=== PATIENT | female | born 1960 | race Caucasian/White ===

== ENCOUNTER 2021-07-20 08:40 | Inpatient (IN) ==
[2021-07-20] MEDS ORDERED: Acetaminophen 325 MG TABLET PO PRN (11:58)
[2021-07-20] MEDS ORDERED: Perflutren Lipid Microsphere 1.3 ML in 0.9 % Sodium Chloride 8.7 ML IVP PRN (11:58)
[2021-07-20] MEDS ORDERED: Isovue-370 500 ML BOTTLE IVP ONE (11:58)
[2021-07-20] MEDS ORDERED: Naloxone 0.4 MG/ML INJ IVP PRN (11:58)
[2021-07-20] MEDS ORDERED: Ondansetron 4 MG/2 ML VIAL IVP PRN (12:05)
[2021-07-20] MEDS ORDERED: Albuterol 2.5 MG/3 ML NEBULIZER IH PRN (12:06)
[2021-07-20] MEDS: Albumin Human 5% 12.5 GM/250 ML IV.SOLN IVC SCH ×2 (13:01→13:28)
[2021-07-20] MEDS: Vancomycin Oral Soln 125 MG/2.5 ML UDC PO SCH ×3 (13:03→20:20)
[2021-07-20 13:05] LABS: Hemoglobin 13.5 g/dL (11.5-15.4); Mean Corpuscular HGB Conc 36.5 g/dL (31.6-35.5); Mean Corpuscular Hemoglobin 35.3 pg (28.0-33.3); Mean Corpuscular Volume 96.9 fL (83.0-100.0); Mean Platelet Volume 9.2 fL (9.4-12.4); Monocytes # 0.5 K/mcL (0.0-1.3); Platelet Count 247 K/mcL (140-400); Red Blood Count 3.82 M/mcL (3.82-4.97); Red Cell Distribution Width 12.8 % (11.5-14.5); White Blood Count 11.4 K/mcL (4.3-11.1)
[2021-07-20] MEDS: Cefepime HCl 2,000 MG in 0.9 % Sodium Chloride 10 ML IVP SCH ×2 (13:09→23:20)
[2021-07-20 13:12] LABS: INR 1.2
[2021-07-20 13:17] LABS: VBG HCO3 14 mEq/L (21-27); VBG PCO2 32 mmHg (41-51); VBG PH 7.26 pH Units (7.32-7.42); VBG PO2 28 mmHg (25-50)
[2021-07-20 13:24] LABS: Alanine Aminotransferase 18 Units/L (7-52); Albumin 3.2 g/dL (3.5-5.7); Albumin/Globulin Ratio 1.7 (1.1-2.2); Alkaline Phosphatase 44 Units/L (34-104); Aspartate Amino Transferase 56 Units/L (13-39); BUN/Creatinine Ratio 15 (6-26); Bilirubin,Direct 0.1 mg/dL (0.0-0.2); Bilirubin,Indirect 0.3 mg/dL (0.0-1.0); Bilirubin,Total 0.4 mg/dL (0.3-1.0); Blood Urea Nitrogen 11 mg/dL (8-23); Calcium 7.8 mg/dL (8.6-10.3); Carbon Dioxide 15 mEq/L (23-29); Chloride 114 mEq/L (98-107); Globulin 1.9 g/dL (2.4-3.5); Glucose 191 mg/dL (70-105); Magnesium 1.8 mg/dL (1.6-2.6); Osmolality,Calculated 287 (280-300); Phosphorous 2.5 mg/dL (2.7-4.5); Potassium 2.9 mEq/L (3.5-5.1); Sodium 136 mEq/L (136-145); Total Protein 5.1 g/dL (6.4-8.9); eGFR For African Americans > 60 (> 60); eGFR For Non-African Americans > 60 (> 60)
[2021-07-20 13:38] LABS: Lymphocytes # 0.5 K/mcL (0.6-4.6); Neutrophils # 10.5 K/mcL (1.6-8.9); Platelet Estimate Normal (Normal)
[2021-07-20] MEDS ORDERED: *HR* LORazepam 2 MG/ML VIAL IVP PRN ×2 (14:54)
[2021-07-20 15:02] LABS: Bilirubin,Urine Negative (Negative); Blood,Urine Small (Negative); Clarity,Urine Clear (Clear); Color,Urine Yellow (Yellow); Glucose,Urine (UA) Normal (Normal); Hyaline Casts,Urine Few per lpf (None Seen); Ketones,Urine Negative (Negative); Leukocyte Esterase,Urine Negative (Negative); Mucus,Urine Few per lpf (None-Few); Nitrite,Urine Negative (Negative); Protein,Urine 50 mg/dL (Neg-Trace); Specific Gravity,Urine 1.017 (1.010-1.025); Squamous Epithelial Cell,Urine Few per hpf (None-Few); Urobilinogen,Urine Normal (Normal); WBC,Urine 0-3 per hpf (0-3)
[2021-07-20] MEDS: MetroNIDAZOLE 500 MG/100 ML 500 MG/100 ML BAG IVPB SCH ×2 (15:11→23:19)
[2021-07-20] MEDS: Ipratropium/Albuterol Neb 3 ML IH SCH ×3 (15:46→23:05)
[2021-07-20] MEDS: Calcium Gluconate 1gm/50mL 1 GM/50 ML BAG IVPB SCH ×2 (15:58→16:13)
[2021-07-20] MEDS: Norepinephrine 4 MG/254 ML IV.SOLN IVC SCH (16:27)
[2021-07-20] MEDS: Thiamine (B-1) 100 MG, Folic Acid 1 MG, MVI, adult with vitamin K 10 ML in 0.9 % Sodi... IVPB SCH (17:06)
[2021-07-20] MEDS: Pantoprazole 40 MG VIAL IVP SCH (17:17)
[2021-07-20] MEDS: *HR* Heparin 5,000 UNIT/ML VIAL SQ SCH (17:17)
[2021-07-20 18:06] LABS: Adenovirus F 40/41 PCR Not detected (Not detect); Astrovirus PCR Not detected (Not detect); C.difficile Toxin A/B Gene PCR Not detected (Not detect); Campylobacter by PCR Not detected (Not detect); Cryptosporidium by PCR Not detected (Not detect); Cyclospora cayetanensis PCR Not detected (Not detect); Entamoeba histolytica PCR Not detected (Not detect); Enteroaggregative E.coli(EAEC) Not detected (Not detect); Enteropathogenic E.coli(EPEC) Not detected (Not detect); Enterotoxigenic E.coli (ETEC) Not detected (Not detect); Giardia lamblia PCR Not detected (Not detect); Norovirus GI/GII PCR Not detected (Not detect); Plesiomonas shigelloides PCR Not detected (Not detect); Rotavirus A PCR Not detected (Not detect); Salmonella PCR Not detected (Not detect); Sapovirus PCR Not detected (Not detect); Shig/EnteroinvasiveE coli EIEC Not detected (Not detect); Shigalike tox-prod E coli STEC Not detected (Not detect); Vibrio PCR Not detected (Not detect); Vibrio cholerae PCR Not detected (Not detect); Yersinia enterocolitica PCR Not detected (Not detect)
[2021-07-20] MEDS: Nicotine 21 MG PATCH.TD24 TD SCH (18:14)
[2021-07-20] MEDS: Potassium Chloride 20 MEQ in Ringers Solution, Lactated 1,000 ML IVC SCH (18:21)
[2021-07-20] MEDS: *HR* LORazepam 2 MG/ML VIAL IVP PRN (19:24)
[2021-07-20] MEDS: Loratadine 10 MG TABLET PO SCH (19:24)
[2021-07-20 20:38] LABS: BUN/Creatinine Ratio 14 (6-26); Blood Urea Nitrogen 8 mg/dL (8-23); Calcium 7.9 mg/dL (8.6-10.3); Carbon Dioxide 14 mEq/L (23-29); Chloride 114 mEq/L (98-107); Glucose 133 mg/dL (70-105); Osmolality,Calculated 284 (280-300); Potassium 3.2 mEq/L (3.5-5.1); Sodium 137 mEq/L (136-145); eGFR For African Americans > 60 (> 60); eGFR For Non-African Americans > 60 (> 60)
[2021-07-20 20:39] LABS: Phosphorous 3.9 mg/dL (2.7-4.5)
[2021-07-20] MEDS: Doxycycline 100 MG in 0.9 % Sodium Chloride Mini Bag 100 ML IVPB SCH (20:55)
[2021-07-20] MEDS: *HR* Labetalol 20 MG/4 ML SYRINGE IVP PRN (23:42)
[2021-07-21 03:32] LABS: Hematocrit 32.3 % (35.3-44.9); Mean Corpuscular HGB Conc 35.6 g/dL (31.6-35.5); Mean Corpuscular Hemoglobin 33.8 pg (28.0-33.3); Mean Platelet Volume 9.4 fL (9.4-12.4); Platelet Count 246 K/mcL (140-400); Red Cell Distribution Width 12.6 % (11.5-14.5); White Blood Count 14.1 K/mcL (4.3-11.1)
[2021-07-21 03:38] LABS: Hemoglobin 11.5 g/dL (11.5-15.4)
[2021-07-21] MEDS: Ipratropium/Albuterol Neb 3 ML IH SCH ×5 (03:43→20:44)
[2021-07-21 03:54] LABS: Alanine Aminotransferase 18 Units/L (7-52); Albumin 3.3 g/dL (3.5-5.7); Albumin/Globulin Ratio 1.7 (1.1-2.2); Alkaline Phosphatase 39 Units/L (34-104); Aspartate Amino Transferase 65 Units/L (13-39); BUN/Creatinine Ratio 17 (6-26); Bilirubin,Direct 0.1 mg/dL (0.0-0.2); Bilirubin,Indirect 0.3 mg/dL (0.0-1.0); Bilirubin,Total 0.4 mg/dL (0.3-1.0); Blood Urea Nitrogen 9 mg/dL (8-23); Calcium 7.7 mg/dL (8.6-10.3); Carbon Dioxide 14 mEq/L (23-29); Chloride 116 mEq/L (98-107); Glucose 129 mg/dL (70-105); Magnesium 1.9 mg/dL (1.6-2.6); Osmolality,Calculated 288 (280-300); Potassium 3.3 mEq/L (3.5-5.1); Sodium 139 mEq/L (136-145); Total Protein 5.3 g/dL (6.4-8.9); eGFR For African Americans > 60 (> 60); eGFR For Non-African Americans > 60 (> 60)
[2021-07-21 04:05] LABS: Lymphocytes # 0.9 K/mcL (0.6-4.6); Monocytes # 0.6 K/mcL (0.0-1.3); Neutrophils # 12.7 K/mcL (1.6-8.9); Platelet Estimate Normal (Normal)
[2021-07-21] MEDS: *HR* LORazepam 2 MG/ML VIAL IVP PRN ×2 (04:20→20:22)
[2021-07-21] MEDS: *HR* Heparin 5,000 UNIT/ML VIAL SQ SCH ×2 (05:12→17:32)
[2021-07-21] MEDS: Doxycycline 100 MG in 0.9 % Sodium Chloride Mini Bag 100 ML IVPB SCH ×2 (05:13→17:30)
[2021-07-21] MEDS: Pantoprazole 40 MG VIAL IVP SCH ×2 (05:13→17:32)
[2021-07-21] MEDS: Potassium Chloride 20 MEQ in Ringers Solution, Lactated 1,000 ML IVC SCH (05:20)
[2021-07-21] MEDS: *HR* Labetalol 20 MG/4 ML SYRINGE IVP PRN ×2 (05:45→18:09)
[2021-07-21] MEDS: Vancomycin Oral Soln 125 MG/2.5 ML UDC PO SCH (08:25)
[2021-07-21] MEDS: Cefepime HCl 2,000 MG in 0.9 % Sodium Chloride 10 ML IVP SCH ×3 (08:25→23:20)
[2021-07-21] MEDS: MetroNIDAZOLE 500 MG/100 ML 500 MG/100 ML BAG IVPB SCH ×3 (08:26→23:20)
[2021-07-21] MEDS: Loratadine 10 MG TABLET PO SCH (08:26)
[2021-07-21] MEDS: Calcium Gluconate 1gm/50mL 1 GM/50 ML BAG IVPB PRN ×2 (08:26→17:31)
[2021-07-21] MEDS: Nicotine 21 MG PATCH.TD24 TD SCH (08:27)
[2021-07-21] MEDS: Potassium Chloride 40 MEQ/200 ML BAG IVPB PRN ×2 (08:27→17:31)
[2021-07-21] MEDS: Norepinephrine 4 MG/254 ML IV.SOLN IVC SCH (08:28)
[2021-07-21] MEDS: WATER IVC SCH ×2 (10:46→19:50)
[2021-07-21] MEDS: POTASSIUM CHLORIDE IVC SCH ×2 (10:46→19:50)
[2021-07-21] MEDS: SODIUM BICARBONATE IVC SCH ×2 (10:46→19:50)
[2021-07-21] MEDS: D5 IVC SCH ×2 (10:46→19:50)
[2021-07-21 11:26] LABS: VBG HCO3 16 mEq/L (21-27); VBG PCO2 32 mmHg (41-51); VBG PO2 126 mmHg (25-50)
[2021-07-21 16:08] LABS: Magnesium 2.2 mg/dL (1.6-2.6); Phosphorous 2.4 mg/dL (2.7-4.5)
[2021-07-21 16:24] LABS: BUN/Creatinine Ratio 20 (6-26); Blood Urea Nitrogen 9 mg/dL (8-23); Calcium 7.8 mg/dL (8.6-10.3); Carbon Dioxide 19 mEq/L (23-29); Chloride 118 mEq/L (98-107); Glucose 130 mg/dL (70-105); Osmolality,Calculated 296 (280-300); Potassium 3.7 mEq/L (3.5-5.1); Sodium 143 mEq/L (136-145); eGFR For African Americans > 60 (> 60); eGFR For Non-African Americans > 60 (> 60)
[2021-07-21 18:00] LABS: VBG HCO3 20 mEq/L (21-27); VBG Ionized Calcium 1.12 mmol/L (1.15-1.35); VBG PCO2 33 mmHg (41-51); VBG PH 7.37 pH Units (7.32-7.42); VBG PO2 112 mmHg (25-50)
[2021-07-21] MEDS: Thiamine (B-1) 100 MG, Folic Acid 1 MG, MVI, adult with vitamin K 10 ML in 0.9 % Sodi... IVPB SCH (19:18)
[2021-07-22] MEDS: Ipratropium/Albuterol Neb 3 ML IH SCH ×7 (00:37→23:26)
[2021-07-22] MEDS: Dexmedetomidine HCl 400 MCG/100 ML MLS IVC SCH ×3 (01:12→16:15)
[2021-07-22 03:51] LABS: Basophils % 0.1 %; Eosinophils # 0.1 K/mcL (0.0-0.6); Eosinophils % 0.5 %; Hematocrit 28.6 % (35.3-44.9); Hemoglobin 10.2 g/dL (11.5-15.4); Immature Granulocytes % 0.4 % (0-4); Lymphocytes # 0.6 K/mcL (0.6-4.6); Lymphocytes % 5.7 %; Mean Corpuscular HGB Conc 35.7 g/dL (31.6-35.5); Mean Corpuscular Volume 95.3 fL (83.0-100.0); Mean Platelet Volume 9.4 fL (9.4-12.4); Monocytes # 0.7 K/mcL (0.0-1.3); Monocytes % 6.4 %; Neutrophils # 9.7 K/mcL (1.6-8.9); Platelet Count 218 K/mcL (140-400); Red Cell Distribution Width 13.2 % (11.5-14.5); Segmented Neutrophils % 86.9 %; White Blood Count 11.2 K/mcL (4.3-11.1)
[2021-07-22 04:06] LABS: VBG Ionized Calcium 1.01 mmol/L (1.15-1.35)
[2021-07-22 04:07] LABS: BUN/Creatinine Ratio 24 (6-26); Blood Urea Nitrogen 8 mg/dL (8-23); Calcium 7.5 mg/dL (8.6-10.3); Carbon Dioxide 24 mEq/L (23-29); Chloride 115 mEq/L (98-107); Glucose 144 mg/dL (70-105); Magnesium 1.8 mg/dL (1.6-2.6); Osmolality,Calculated 297 (280-300); Phosphorous 1.6 mg/dL (2.7-4.5); Potassium 3.8 mEq/L (3.5-5.1); Sodium 143 mEq/L (136-145); eGFR For African Americans > 60 (> 60); eGFR For Non-African Americans > 60 (> 60)
[2021-07-22] MEDS: Calcium Gluconate 1gm/50mL 1 GM/50 ML BAG IVPB PRN ×2 (04:43→18:43)
[2021-07-22] MEDS: POTASSIUM CHLORIDE IVC SCH ×2 (04:44→14:43)
[2021-07-22] MEDS: WATER IVC SCH ×2 (04:44→14:43)
[2021-07-22] MEDS: SODIUM BICARBONATE IVC SCH ×2 (04:44→14:43)
[2021-07-22] MEDS: D5 IVC SCH ×2 (04:44→14:43)
[2021-07-22] MEDS: Norepinephrine 4 MG/254 ML IV.SOLN IVC SCH (04:45)
[2021-07-22] MEDS: Doxycycline 100 MG in 0.9 % Sodium Chloride Mini Bag 100 ML IVPB SCH ×2 (04:45→17:03)
[2021-07-22] MEDS: *HR* Heparin 5,000 UNIT/ML VIAL SQ SCH ×2 (04:45→17:04)
[2021-07-22] MEDS: Pantoprazole 40 MG VIAL IVP SCH ×2 (04:45→17:29)
[2021-07-22] MEDS: *HR* Labetalol 20 MG/4 ML SYRINGE IVP PRN ×2 (05:07→08:07)
[2021-07-22 07:46] LABS: ABG Base Excess -1 mEq/L (-2 to 3); ABG HCO3 24 mEq/L (21-27); ABG Oxygen Saturation 93 % (95-98); ABG PCO2 38 mmHg (35-45); ABG PO2 67 mmHg (85-104); ABG TCO2 25 mEq/L (20-26)
[2021-07-22] MEDS: Nicotine 21 MG PATCH.TD24 TD SCH (07:47)
[2021-07-22] MEDS: Cefepime HCl 2,000 MG in 0.9 % Sodium Chloride 10 ML IVP SCH ×3 (07:47→23:39)
[2021-07-22] MEDS: MetroNIDAZOLE 500 MG/100 ML 500 MG/100 ML BAG IVPB SCH ×3 (07:48→23:39)
[2021-07-22] MEDS ORDERED: Furosemide 40 MG/4 ML VIAL IVP ONE (08:03)
[2021-07-22] MEDS ORDERED: Furosemide 40 MG/4 ML VIAL ONE (08:06)
[2021-07-22] MEDS: Loratadine 10 MG TABLET PO SCH (08:59)
[2021-07-22] MEDS: Midazolam HCl 50 MG/50 ML IV.SOLN IVC SCH ×3 (14:34→23:39)
[2021-07-22] MEDS ORDERED: *HR* Midazolam HCl 5 MG/5 ML VIAL IVP ONE (16:14)
[2021-07-22] MEDS ORDERED: *HR* Propofol 200 MG/20 ML VIAL IVP ONE (16:14)
[2021-07-22 16:16] LABS: ABG Base Excess 3 mEq/L (-2 to 3); ABG HCO3 29 mEq/L (21-27); ABG Oxygen Saturation 100 % (95-98); ABG PCO2 52 mmHg (35-45); ABG PH 7.35 pH Units (7.32-7.45); ABG PO2 262 mmHg (85-104); ABG TCO2 31 mEq/L (20-26); Blood Gas VT 400 cc
[2021-07-22] MEDS: Thiamine (B-1) 100 MG, Folic Acid 1 MG, MVI, adult with vitamin K 10 ML in 0.9 % Sodi... IVPB SCH (17:03)
[2021-07-22 17:49] LABS: VBG Ionized Calcium 1.06 mmol/L (1.15-1.35)
[2021-07-22 17:51] LABS: Source of Body Fluid RLL BAL
[2021-07-22 18:05] LABS: BUN/Creatinine Ratio 22 (6-26); Blood Urea Nitrogen 7 mg/dL (8-23); Calcium 7.4 mg/dL (8.6-10.3); Carbon Dioxide 29 mEq/L (23-29); Chloride 110 mEq/L (98-107); Glucose 123 mg/dL (70-105); Magnesium 1.8 mg/dL (1.6-2.6); Osmolality,Calculated 295 (280-300); Phosphorous 3.1 mg/dL (2.7-4.5); Potassium 3.6 mEq/L (3.5-5.1); Sodium 143 mEq/L (136-145); eGFR For African Americans > 60 (> 60); eGFR For Non-African Americans > 60 (> 60)
[2021-07-22] MEDS: Potassium Chloride Elixir 20 MEQ/15 ML UDC GTUBE PRN (18:50)
[2021-07-22 20:50] LABS: Appearance of Body Fluid Cloudy (Clear); Volume of Body Fluid 20 mL
[2021-07-23 02:00] LABS: Hematocrit 29.8 % (35.3-44.9); Hemoglobin 10.5 g/dL (11.5-15.4)
[2021-07-23 02:03] LABS: VBG Ionized Calcium 1.09 mmol/L (1.15-1.35)
[2021-07-23 02:21] LABS: Phosphorous 2.3 mg/dL (2.7-4.5)
[2021-07-23] MEDS: Calcium Gluconate 1gm/50mL 1 GM/50 ML BAG IVPB PRN ×2 (02:24→13:00)
[2021-07-23] MEDS: Ipratropium/Albuterol Neb 3 ML IH SCH ×6 (04:06→23:09)
[2021-07-23 04:19] LABS: ABG Base Excess 1 mEq/L (-2 to 3); ABG HCO3 27 mEq/L (21-27); ABG Oxygen Saturation 99 % (95-98); ABG PCO2 46 mmHg (35-45); ABG PH 7.37 pH Units (7.32-7.45); ABG PO2 125 mmHg (85-104); ABG TCO2 28 mEq/L (20-26); Blood Gas VT 400 cc
[2021-07-23 04:27] LABS: BUN/Creatinine Ratio 22 (6-26); Blood Urea Nitrogen 7 mg/dL (8-23); Calcium 7.5 mg/dL (8.6-10.3); Carbon Dioxide 26 mEq/L (23-29); Chloride 114 mEq/L (98-107); Glucose 87 mg/dL (70-105); Osmolality,Calculated 299 (280-300); Potassium 3.9 mEq/L (3.5-5.1); Sodium 146 mEq/L (136-145); eGFR For African Americans > 60 (> 60); eGFR For Non-African Americans > 60 (> 60)
[2021-07-23] MEDS: *HR* Heparin 5,000 UNIT/ML VIAL SQ SCH ×2 (04:58→17:39)
[2021-07-23] MEDS: Pantoprazole 40 MG VIAL IVP SCH (04:58)
[2021-07-23] MEDS: Doxycycline 100 MG in 0.9 % Sodium Chloride Mini Bag 100 ML IVPB SCH ×2 (04:58→17:28)
[2021-07-23] MEDS: Calcium Gluconate 1gm/50mL 1 GM/50 ML BAG IVPB SCH ×2 (06:23→06:34)
[2021-07-23] MEDS: Norepinephrine 4 MG/254 ML IV.SOLN IVC SCH ×2 (07:51→23:11)
[2021-07-23] MEDS: Nicotine 21 MG PATCH.TD24 TD SCH (07:52)
[2021-07-23] MEDS: MetroNIDAZOLE 500 MG/100 ML 500 MG/100 ML BAG IVPB SCH ×3 (08:18→23:11)
[2021-07-23] MEDS: Cefepime HCl 2,000 MG in 0.9 % Sodium Chloride 10 ML IVP SCH ×3 (08:22→23:11)
[2021-07-23] MEDS: Loratadine 10 MG TABLET PO SCH (08:29)
[2021-07-23] MEDS ORDERED: Artificial Tears SOLN 15 ML BOTTLE BOTH EYES PRN (10:17)
[2021-07-23] MEDS: Midazolam HCl 50 MG/50 ML IV.SOLN IVC SCH ×2 (11:32→19:52)
[2021-07-23] MEDS: Artificial Tears SOLN 15 ML BOTTLE BOTH EYES SCH ×4 (11:35→23:10)
[2021-07-23 12:44] LABS: VBG Ionized Calcium 1.09 mmol/L (1.15-1.35)
[2021-07-23 13:01] LABS: BUN/Creatinine Ratio 21 (6-26); Blood Urea Nitrogen 6 mg/dL (8-23); Calcium 7.8 mg/dL (8.6-10.3); Carbon Dioxide 26 mEq/L (23-29); Chloride 114 mEq/L (98-107); Glucose 82 mg/dL (70-105); Osmolality,Calculated 299 (280-300); Potassium 3.6 mEq/L (3.5-5.1); Sodium 146 mEq/L (136-145); eGFR For African Americans > 60 (> 60); eGFR For Non-African Americans > 60 (> 60)
[2021-07-23] MEDS: Potassium Chloride Elixir 20 MEQ/15 ML UDC GTUBE PRN (16:03)
[2021-07-23] MEDS: Chlorhexidine Rinse 15 ML MOUTHWASH MM SCH (20:20)
[2021-07-24] MEDS: Midazolam HCl 50 MG/50 ML IV.SOLN IVC SCH (02:11)
[2021-07-24] MEDS: Artificial Tears SOLN 15 ML BOTTLE BOTH EYES SCH ×6 (03:07→23:17)
[2021-07-24] MEDS: Ipratropium/Albuterol Neb 3 ML IH SCH ×6 (03:33→23:29)
[2021-07-24 03:56] LABS: VBG Ionized Calcium 1.06 mmol/L (1.15-1.35)
[2021-07-24 04:06] LABS: ABG Base Excess -2 mEq/L (-2 to 3); ABG HCO3 24 mEq/L (21-27); ABG Oxygen Saturation 85 % (95-98); ABG PCO2 43 mmHg (35-45); ABG PH 7.36 pH Units (7.32-7.45); ABG PO2 52 mmHg (85-104); ABG TCO2 25 mEq/L (20-26); Blood Gas Modality ASSIST CONTROL; Blood Gas VT 400 cc
[2021-07-24 04:26] LABS: BUN/Creatinine Ratio 23 (6-26); Blood Urea Nitrogen 7 mg/dL (8-23); Calcium 7.6 mg/dL (8.6-10.3); Carbon Dioxide 23 mEq/L (23-29); Chloride 117 mEq/L (98-107); Glucose 111 mg/dL (70-105); Osmolality,Calculated 299 (280-300); Phosphorous 2.9 mg/dL (2.7-4.5); Potassium 3.9 mEq/L (3.5-5.1); Sodium 145 mEq/L (136-145); eGFR For African Americans > 60 (> 60); eGFR For Non-African Americans > 60 (> 60)
[2021-07-24] MEDS: *HR* Heparin 5,000 UNIT/ML VIAL SQ SCH ×2 (05:19→17:19)
[2021-07-24] MEDS: Doxycycline 100 MG in 0.9 % Sodium Chloride Mini Bag 100 ML IVPB SCH ×2 (05:19→17:19)
[2021-07-24] MEDS: Calcium Gluconate 1gm/50mL 1 GM/50 ML BAG IVPB PRN (05:20)
[2021-07-24] MEDS: Dexmedetomidine HCl 400 MCG/100 ML MLS IVC SCH ×3 (05:22→23:26)
[2021-07-24 06:56] LABS: Basophils % 0.2 %; Eosinophils # 0.5 K/mcL (0.0-0.6); Eosinophils % 2.8 %; Hematocrit 29.5 % (35.3-44.9); Hemoglobin 10.1 g/dL (11.5-15.4); Immature Granulocytes % 1.1 % (0-4); Lymphocytes # 0.9 K/mcL (0.6-4.6); Mean Corpuscular HGB Conc 34.2 g/dL (31.6-35.5); Mean Corpuscular Hemoglobin 34.2 pg (28.0-33.3); Mean Platelet Volume 10.1 fL (9.4-12.4); Platelet Count 235 K/mcL (140-400); Red Blood Count 2.95 M/mcL (3.82-4.97); Red Cell Distribution Width 14.3 % (11.5-14.5); Segmented Neutrophils % 82.9 %
[2021-07-24 07:30] LABS: Monocytes # 1.4 K/mcL (0.0-1.3); Neutrophils # 14.9 K/mcL (1.6-8.9)
[2021-07-24] MEDS: Nicotine 21 MG PATCH.TD24 TD SCH (07:52)
[2021-07-24] MEDS: MetroNIDAZOLE 500 MG/100 ML 500 MG/100 ML BAG IVPB SCH ×3 (08:00→23:17)
[2021-07-24] MEDS: Cefepime HCl 2,000 MG in 0.9 % Sodium Chloride 10 ML IVP SCH ×3 (08:05→23:18)
[2021-07-24] MEDS: Loratadine 10 MG TABLET PO SCH (08:16)
[2021-07-24] MEDS: Chlorhexidine Rinse 15 ML MOUTHWASH MM SCH ×2 (08:16→20:47)
[2021-07-24] MEDS: Potassium Chloride Elixir 20 MEQ/15 ML UDC GTUBE PRN (08:56)
[2021-07-24] MEDS: Pantoprazole 40 MG VIAL IVP SCH (08:57)
[2021-07-24] MEDS ORDERED: Furosemide 40 MG/4 ML VIAL IVP ONE (12:41)
[2021-07-24] MEDS ORDERED: 0.9 % Sodium Chloride 500 ML ONE (17:03)
[2021-07-24] MEDS: Norepinephrine 4 MG/254 ML IV.SOLN IVC SCH (21:29)
[2021-07-25] MEDS: Artificial Tears SOLN 15 ML BOTTLE BOTH EYES SCH ×6 (03:05→22:20)
[2021-07-25] MEDS: Ipratropium/Albuterol Neb 3 ML IH SCH ×6 (03:29→23:35)
[2021-07-25 04:22] LABS: ABG Base Excess 1 mEq/L (-2 to 3); ABG HCO3 27 mEq/L (21-27); ABG Oxygen Saturation 96 % (95-98); ABG PCO2 46 mmHg (35-45); ABG PH 7.38 pH Units (7.32-7.45); ABG PO2 88 mmHg (85-104); ABG TCO2 28 mEq/L (20-26); Blood Gas VT 400 cc
[2021-07-25 04:25] LABS: VBG Ionized Calcium 1.05 mmol/L (1.15-1.35)
[2021-07-25 04:44] LABS: BUN/Creatinine Ratio 26 (6-26); Blood Urea Nitrogen 7 mg/dL (8-23); Carbon Dioxide 25 mEq/L (23-29); Chloride 115 mEq/L (98-107); Glucose 126 mg/dL (70-105); Magnesium 1.8 mg/dL (1.6-2.6); Osmolality,Calculated 300 (280-300); Phosphorous 2.4 mg/dL (2.7-4.5); Sodium 145 mEq/L (136-145); eGFR For African Americans > 60 (> 60); eGFR For Non-African Americans > 60 (> 60)
[2021-07-25] MEDS: Calcium Gluconate 1gm/50mL 1 GM/50 ML BAG IVPB PRN (04:55)
[2021-07-25] MEDS: *HR* Heparin 5,000 UNIT/ML VIAL SQ SCH ×2 (05:02→17:52)
[2021-07-25] MEDS: Doxycycline 100 MG in 0.9 % Sodium Chloride Mini Bag 100 ML IVPB SCH ×2 (05:02→17:52)
[2021-07-25 05:45] LABS: Basophils % 0.4 %; Eosinophils # 0.7 K/mcL (0.0-0.6); Eosinophils % 7.2 %; Hemoglobin 10.3 g/dL (11.5-15.4); Immature Granulocytes % 1.8 % (0-4); Lymphocytes # 1.3 K/mcL (0.6-4.6); Lymphocytes % 14.7 %; Mean Corpuscular HGB Conc 32.2 g/dL (31.6-35.5); Mean Corpuscular Hemoglobin 32.9 pg (28.0-33.3); Mean Corpuscular Volume 102.2 fL (83.0-100.0); Mean Platelet Volume 10.8 fL (9.4-12.4); Monocytes % 10.6 %; Neutrophils # 5.9 K/mcL (1.6-8.9); Platelet Count 168 K/mcL (140-400); Red Blood Count 3.13 M/mcL (3.82-4.97); Red Cell Distribution Width 14.4 % (11.5-14.5); Segmented Neutrophils % 65.3 %
[2021-07-25] MEDS: Dexmedetomidine HCl 400 MCG/100 ML MLS IVC SCH ×4 (06:08→21:41)
[2021-07-25] MEDS: Pantoprazole 40 MG VIAL IVP SCH (07:31)
[2021-07-25] MEDS: Cefepime HCl 2,000 MG in 0.9 % Sodium Chloride 10 ML IVP SCH ×3 (07:31→23:16)
[2021-07-25] MEDS: Nicotine 21 MG PATCH.TD24 TD SCH (07:31)
[2021-07-25] MEDS: Chlorhexidine Rinse 15 ML MOUTHWASH MM SCH ×2 (07:31→21:20)
[2021-07-25] MEDS: Loratadine 10 MG TABLET PO SCH (07:31)
[2021-07-25] MEDS: Furosemide 20 MG/2 ML VIAL IVP SCH (07:43)
[2021-07-25] MEDS ORDERED: Dextrose Gel 15 GM/37.5 ML TUBE PO PRN ×2 (08:27)
[2021-07-25] MEDS ORDERED: D5% in Water 1,000 ML IVC PRN (08:27)
[2021-07-25] MEDS ORDERED: *HR* Dextrose 50 % in Water (Syg) 50 ML SYRINGE IVP PRN (08:27)
[2021-07-25] MEDS: MetroNIDAZOLE 500 MG/100 ML 500 MG/100 ML BAG IVPB SCH ×3 (09:44→23:18)
[2021-07-25] MEDS: Insulin LISPRO 300 UNITS/3 ML VIAL SUBQ SCH ×3 (11:54→21:21)
[2021-07-25 13:53] LABS: Magnesium 1.8 mg/dL (1.6-2.6); Phosphorous 3.1 mg/dL (2.7-4.5)
[2021-07-25 14:12] LABS: VBG Ionized Calcium 1.13 mmol/L (1.15-1.35)
[2021-07-25] MEDS: Thiamine (B-1) 100 MG in 0.9 % Sodium Chloride 50 ML IVPB SCH (17:47)
[2021-07-25] MEDS: MethylPREDNISolone 40 MG/ML VIAL IVP SCH (17:59)
[2021-07-26] MEDS: Insulin LISPRO 300 UNITS/3 ML VIAL SUBQ SCH ×6 (00:02→20:59)
[2021-07-26] MEDS: Thiamine (B-1) 100 MG in 0.9 % Sodium Chloride 50 ML IVPB SCH ×2 (00:22→08:44)
[2021-07-26] MEDS: Dexmedetomidine HCl 400 MCG/100 ML MLS IVC SCH ×2 (00:37→07:49)
[2021-07-26] MEDS: Artificial Tears SOLN 15 ML BOTTLE BOTH EYES SCH ×5 (01:28→20:59)
[2021-07-26] MEDS: Ipratropium/Albuterol Neb 3 ML IH SCH ×5 (03:42→20:58)
[2021-07-26 03:50] LABS: ABG Base Excess 5 mEq/L (-2 to 3); ABG HCO3 30 mEq/L (21-27); ABG Oxygen Saturation 98 % (95-98); ABG PCO2 48 mmHg (35-45); ABG PH 7.41 pH Units (7.32-7.45); ABG PO2 108 mmHg (85-104); ABG TCO2 32 mEq/L (20-26); Blood Gas VT 400 cc
[2021-07-26] MEDS: *HR* Heparin 5,000 UNIT/ML VIAL SQ SCH ×2 (03:57→17:40)
[2021-07-26] MEDS: MethylPREDNISolone 40 MG/ML VIAL IVP SCH ×2 (03:58→17:39)
[2021-07-26] MEDS: Doxycycline 100 MG in 0.9 % Sodium Chloride Mini Bag 100 ML IVPB SCH ×2 (04:54→17:39)
[2021-07-26] MEDS: Cefepime HCl 2,000 MG in 0.9 % Sodium Chloride 10 ML IVP SCH ×2 (07:49→15:08)
[2021-07-26] MEDS: Pantoprazole 40 MG VIAL IVP SCH (07:49)
[2021-07-26] MEDS: Chlorhexidine Rinse 15 ML MOUTHWASH MM SCH ×2 (07:49→20:58)
[2021-07-26] MEDS: Nicotine 21 MG PATCH.TD24 TD SCH (07:49)
[2021-07-26] MEDS: Furosemide 20 MG/2 ML VIAL IVP SCH (07:49)
[2021-07-26] MEDS: MetroNIDAZOLE 500 MG/100 ML 500 MG/100 ML BAG IVPB SCH ×2 (07:49→15:09)
[2021-07-26] MEDS: Loratadine 10 MG TABLET PO SCH (07:50)
[2021-07-26 07:57] LABS: ABG Base Excess 4 mEq/L (-2 to 3); ABG HCO3 30 mEq/L (21-27); ABG Oxygen Saturation 99 % (95-98); ABG PCO2 50 mmHg (35-45); ABG PH 7.38 pH Units (7.32-7.45); ABG PO2 125 mmHg (85-104); ABG TCO2 31 mEq/L (20-26); Blood Gas Modality CPAP/PS; Blood Gas Pressure Support 12 cm H2O
[2021-07-26] MEDS ORDERED: tiZANidine 4 MG TABLET PO PRN ×2 (09:22→17:05)
[2021-07-26] MEDS: Gabapentin 300 MG CAPSULE PO SCH ×3 (09:30→21:01)
[2021-07-26] MEDS: BuPROPion SR (12 HR) 100 MG TABLET PO SCH ×2 (09:31→10:11)
[2021-07-26 10:12] LABS: BUN/Creatinine Ratio 34 (6-26); Blood Urea Nitrogen 11 mg/dL (8-23); Calcium 8.7 mg/dL (8.6-10.3); Carbon Dioxide 30 mEq/L (23-29); Chloride 108 mEq/L (98-107); Glucose 136 mg/dL (70-105); Magnesium 2.1 mg/dL (1.6-2.6); Osmolality,Calculated 301 (280-300); Potassium 3.7 mEq/L (3.5-5.1); Sodium 145 mEq/L (136-145); eGFR For African Americans > 60 (> 60); eGFR For Non-African Americans > 60 (> 60)
[2021-07-26] MEDS ORDERED: Midazolam HCl 50 MG/50 ML IV.SOLN IVC SCH (17:05)
[2021-07-26] MEDS ORDERED: Dextrose Gel 15 GM/37.5 ML TUBE PO PRN ×2 (17:05)
[2021-07-26] MEDS ORDERED: Potassium Chloride Elixir 20 MEQ/15 ML UDC GTUBE PRN (17:05)
[2021-07-26] MEDS ORDERED: Albuterol 2.5 MG/3 ML NEBULIZER IH PRN (17:05)
[2021-07-26] MEDS ORDERED: D5% in Water 1,000 ML IVC PRN (17:05)
[2021-07-26] MEDS ORDERED: *HR* Dextrose 50 % in Water (Syg) 50 ML SYRINGE IVP PRN (17:05)
[2021-07-26] MEDS ORDERED: Acetaminophen 325 MG TABLET PO PRN (17:05)
[2021-07-26] MEDS ORDERED: Calcium Gluconate 1gm/50mL 1 GM/50 ML BAG IVPB PRN (17:05)
[2021-07-26] MEDS ORDERED: Naloxone 0.4 MG/ML INJ IVP PRN (17:05)
[2021-07-26] MEDS ORDERED: Ondansetron 4 MG/2 ML VIAL IVP PRN (17:05)
[2021-07-26] MEDS ORDERED: Artificial Tears SOLN 15 ML BOTTLE BOTH EYES PRN (17:05)
[2021-07-26] MEDS ORDERED: Perflutren Lipid Microsphere 1.3 ML in 0.9 % Sodium Chloride 8.7 ML IVP PRN (17:05)
[2021-07-26] MEDS ORDERED: traZODone 50 MG TABLET PO SCH ×2 (21:00)
[2021-07-26] MEDS: *HR* Labetalol 20 MG/4 ML SYRINGE IVP PRN (22:12)
[2021-07-27] MEDS: Ipratropium/Albuterol Neb 3 ML IH SCH ×6 (00:28→21:14)
[2021-07-27] MEDS: Artificial Tears SOLN 15 ML BOTTLE BOTH EYES SCH ×4 (00:53→11:52)
[2021-07-27] MEDS: MetroNIDAZOLE 500 MG/100 ML 500 MG/100 ML BAG IVPB SCH ×3 (00:53→15:25)
[2021-07-27] MEDS: Cefepime HCl 2,000 MG in 0.9 % Sodium Chloride 20 ML IVP SCH ×3 (00:55→15:24)
[2021-07-27] MEDS: Insulin LISPRO 300 UNITS/3 ML VIAL SUBQ SCH ×6 (00:55→23:33)
[2021-07-27] MEDS: Thiamine (B-1) 100 MG in 0.9 % Sodium Chloride 50 ML IVPB SCH ×4 (01:24→17:34)
[2021-07-27 04:16] LABS: Hematocrit 31.8 % (35.3-44.9); Hemoglobin 10.8 g/dL (11.5-15.4); Mean Platelet Volume 10.1 fL (9.4-12.4); Platelet Count 372 K/mcL (140-400); Red Blood Count 3.18 M/mcL (3.82-4.97); Red Cell Distribution Width 13.7 % (11.5-14.5)
[2021-07-27 04:27] LABS: White Blood Count 14.5 K/mcL (4.3-11.1)
[2021-07-27 04:30] LABS: BUN/Creatinine Ratio 28 (6-26); Blood Urea Nitrogen 8 mg/dL (8-23); Calcium 8.1 mg/dL (8.6-10.3); Carbon Dioxide 29 mEq/L (23-29); Chloride 106 mEq/L (98-107); Glucose 119 mg/dL (70-105); Osmolality,Calculated 293 (280-300); Potassium 3.1 mEq/L (3.5-5.1); Sodium 142 mEq/L (136-145); eGFR For African Americans > 60 (> 60); eGFR For Non-African Americans > 60 (> 60)
[2021-07-27] MEDS: *HR* Heparin 5,000 UNIT/ML VIAL SQ SCH ×2 (05:46→17:35)
[2021-07-27] MEDS: Doxycycline 100 MG in 0.9 % Sodium Chloride Mini Bag 100 ML IVPB SCH ×2 (05:46→17:34)
[2021-07-27] MEDS: MethylPREDNISolone 40 MG/ML VIAL IVP SCH (05:48)
[2021-07-27] MEDS: *HR* Labetalol 20 MG/4 ML SYRINGE IVP PRN ×2 (06:22→13:23)
[2021-07-27] MEDS: Nicotine 21 MG PATCH.TD24 TD SCH (08:45)
[2021-07-27] MEDS: Pantoprazole 40 MG VIAL IVP SCH (08:45)
[2021-07-27] MEDS: Gabapentin 300 MG CAPSULE PO SCH ×3 (08:45→20:03)
[2021-07-27] MEDS: Loratadine 10 MG TABLET PO SCH (08:46)
[2021-07-27] MEDS: Chlorhexidine Rinse 15 ML MOUTHWASH MM SCH (08:48)
[2021-07-27] MEDS ORDERED: Furosemide 40 MG TABLET PO SCH ×2 (09:00)
[2021-07-27] MEDS: BuPROPion SR (12 HR) 100 MG TABLET PO SCH (11:51)
[2021-07-27] MEDS: lisinopriL 5 MG TABLET PO SCH (13:21)
[2021-07-27] MEDS: *HR* LORazepam 1 MG TABLET PO PRN (20:02)
[2021-07-27] MEDS ORDERED: traZODone 50 MG TABLET PO SCH (21:00)
[2021-07-28] MEDS ORDERED: Melatonin 3 MG TABLET PO PRN (00:12)
[2021-07-28] MEDS: MetroNIDAZOLE 500 MG/100 ML 500 MG/100 ML BAG IVPB SCH ×4 (00:49→23:27)
[2021-07-28] MEDS: Cefepime HCl 2,000 MG in 0.9 % Sodium Chloride 20 ML IVP SCH ×4 (00:52→23:26)
[2021-07-28] MEDS: Thiamine (B-1) 100 MG in 0.9 % Sodium Chloride 50 ML IVPB SCH ×3 (01:05→16:45)
[2021-07-28 03:27] LABS: Basophils % 0.2 %; Eosinophils # 0.1 K/mcL (0.0-0.6); Eosinophils % 1.1 %; Hematocrit 33.7 % (35.3-44.9); Hemoglobin 11.3 g/dL (11.5-15.4); Immature Granulocytes % 1.1 % (0-4); Lymphocytes # 1.4 K/mcL (0.6-4.6); Lymphocytes % 10.9 %; Mean Corpuscular HGB Conc 33.5 g/dL (31.6-35.5); Mean Corpuscular Hemoglobin 33.6 pg (28.0-33.3); Mean Corpuscular Volume 100.3 fL (83.0-100.0); Mean Platelet Volume 10.6 fL (9.4-12.4); Monocytes # 1.5 K/mcL (0.0-1.3); Monocytes % 12.4 %; Neutrophils # 9.2 K/mcL (1.6-8.9); Platelet Count 399 K/mcL (140-400); Red Blood Count 3.36 M/mcL (3.82-4.97); Red Cell Distribution Width 13.4 % (11.5-14.5); Segmented Neutrophils % 74.3 %; White Blood Count 12.4 K/mcL (4.3-11.1)
[2021-07-28 03:40] LABS: BUN/Creatinine Ratio 23 (6-26); Blood Urea Nitrogen 9 mg/dL (8-23); Calcium 8.5 mg/dL (8.6-10.3); Carbon Dioxide 28 mEq/L (23-29); Chloride 105 mEq/L (98-107); Glucose 125 mg/dL (70-105); Magnesium 1.8 mg/dL (1.6-2.6); Osmolality,Calculated 292 (280-300); Phosphorous 3.3 mg/dL (2.7-4.5); Potassium 3.1 mEq/L (3.5-5.1); Sodium 141 mEq/L (136-145); eGFR For African Americans > 60 (> 60); eGFR For Non-African Americans > 60 (> 60)
[2021-07-28] MEDS: *HR* LORazepam 1 MG TABLET PO PRN (04:54)
[2021-07-28] MEDS: Doxycycline 100 MG in 0.9 % Sodium Chloride Mini Bag 100 ML IVPB SCH (05:15)
[2021-07-28] MEDS: *HR* Heparin 5,000 UNIT/ML VIAL SQ SCH ×2 (05:16→16:46)
[2021-07-28] MEDS: Insulin LISPRO 300 UNITS/3 ML VIAL SUBQ SCH ×4 (07:44→22:10)
[2021-07-28] MEDS: Ipratropium/Albuterol Neb 3 ML IH SCH ×3 (08:09→20:01)
[2021-07-28] MEDS: Nicotine 21 MG PATCH.TD24 TD SCH (09:15)
[2021-07-28] MEDS: Potassium Chloride Elixir 20 MEQ/15 ML UDC PO SCH ×2 (09:16→21:37)
[2021-07-28] MEDS: BuPROPion SR (12 HR) 100 MG TABLET PO SCH (09:16)
[2021-07-28] MEDS: lisinopriL 5 MG TABLET PO SCH (09:16)
[2021-07-28] MEDS: predniSONE 20 MG TABLET PO SCH (09:16)
[2021-07-28] MEDS: Pantoprazole 40 MG VIAL IVP SCH (09:16)
[2021-07-28] MEDS: Gabapentin 300 MG CAPSULE PO SCH ×3 (09:17→21:36)
[2021-07-28] MEDS: Loratadine 10 MG TABLET PO SCH (09:17)
[2021-07-28] MEDS ORDERED: haloperidoL 1 MG TABLET PO PRN (11:51)
[2021-07-28] MEDS: Melatonin 3 MG TABLET PO SCH (21:36)
[2021-07-28] MEDS: QUEtiapine Fumarate 25 MG TABLET PO SCH (21:37)
[2021-07-29] MEDS: Thiamine (B-1) 100 MG in 0.9 % Sodium Chloride 50 ML IVPB SCH ×3 (01:52→20:14)
[2021-07-29 04:43] LABS: Basophils % 0.2 %; Eosinophils # 0.1 K/mcL (0.0-0.6); Eosinophils % 1.2 %; Hemoglobin 10.9 g/dL (11.5-15.4); Immature Granulocytes % 0.9 % (0-4); Lymphocytes # 1.8 K/mcL (0.6-4.6); Lymphocytes % 17.1 %; Mean Corpuscular Hemoglobin 33.7 pg (28.0-33.3); Mean Corpuscular Volume 102.2 fL (83.0-100.0); Mean Platelet Volume 10.5 fL (9.4-12.4); Monocytes # 1.4 K/mcL (0.0-1.3); Monocytes % 13.2 %; Neutrophils # 6.9 K/mcL (1.6-8.9); Platelet Count 420 K/mcL (140-400); Red Blood Count 3.23 M/mcL (3.82-4.97); Red Cell Distribution Width 13.4 % (11.5-14.5); Segmented Neutrophils % 67.4 %; White Blood Count 10.3 K/mcL (4.3-11.1)
[2021-07-29] MEDS: *HR* Heparin 5,000 UNIT/ML VIAL SQ SCH ×2 (04:53→17:00)
[2021-07-29 05:02] LABS: BUN/Creatinine Ratio 15 (6-26); Blood Urea Nitrogen 6 mg/dL (8-23); Calcium 8.7 mg/dL (8.6-10.3); Carbon Dioxide 25 mEq/L (23-29); Chloride 110 mEq/L (98-107); Glucose 98 mg/dL (70-105); Magnesium 1.8 mg/dL (1.6-2.6); Osmolality,Calculated 290 (280-300); Phosphorous 3.1 mg/dL (2.7-4.5); Potassium 3.7 mEq/L (3.5-5.1); Sodium 141 mEq/L (136-145); eGFR For African Americans > 60 (> 60); eGFR For Non-African Americans > 60 (> 60)
[2021-07-29] MEDS: Ipratropium/Albuterol Neb 3 ML IH SCH ×3 (07:37→22:26)
[2021-07-29] MEDS: Insulin LISPRO 300 UNITS/3 ML VIAL SUBQ SCH ×4 (08:00→20:07)
[2021-07-29] MEDS: Cefepime HCl 2,000 MG in 0.9 % Sodium Chloride 20 ML IVP SCH (08:53)
[2021-07-29] MEDS: MetroNIDAZOLE 500 MG/100 ML 500 MG/100 ML BAG IVPB SCH (08:53)
[2021-07-29] MEDS: predniSONE 20 MG TABLET PO SCH (09:23)
[2021-07-29] MEDS: BuPROPion SR (12 HR) 100 MG TABLET PO SCH ×2 (09:23→20:14)
[2021-07-29] MEDS: Gabapentin 300 MG CAPSULE PO SCH ×3 (09:23→20:14)
[2021-07-29] MEDS: lisinopriL 5 MG TABLET PO SCH (09:23)
[2021-07-29] MEDS: Loratadine 10 MG TABLET PO SCH (09:23)
[2021-07-29] MEDS: Nicotine 21 MG PATCH.TD24 TD SCH (09:23)
[2021-07-29] MEDS: Pantoprazole 40 MG VIAL IVP SCH (09:24)
[2021-07-29] MEDS ORDERED: *HR* LORazepam 2 MG/ML VIAL IVP ONE (14:54)
[2021-07-29] MEDS: Melatonin 3 MG TABLET PO SCH (20:14)
[2021-07-29] MEDS: QUEtiapine Fumarate 25 MG TABLET PO SCH (20:14)
[2021-07-30] MEDS: *HR* Heparin 5,000 UNIT/ML VIAL SQ SCH ×2 (02:26→18:01)
[2021-07-30 07:09] LABS: Basophils % 0.2 %; Eosinophils # 0.2 K/mcL (0.0-0.6); Hematocrit 30.9 % (35.3-44.9); Hemoglobin 10.1 g/dL (11.5-15.4); Immature Granulocytes % 0.6 % (0-4); Lymphocytes # 1.3 K/mcL (0.6-4.6); Lymphocytes % 13.5 %; Mean Corpuscular HGB Conc 32.7 g/dL (31.6-35.5); Mean Corpuscular Hemoglobin 33.6 pg (28.0-33.3); Mean Corpuscular Volume 102.7 fL (83.0-100.0); Mean Platelet Volume 10.3 fL (9.4-12.4); Monocytes # 1.1 K/mcL (0.0-1.3); Monocytes % 11.2 %; Neutrophils # 7.1 K/mcL (1.6-8.9); Platelet Count 447 K/mcL (140-400); Red Blood Count 3.01 M/mcL (3.82-4.97); Red Cell Distribution Width 13.1 % (11.5-14.5); Segmented Neutrophils % 72.5 %; White Blood Count 9.8 K/mcL (4.3-11.1)
[2021-07-30] MEDS: Ipratropium/Albuterol Neb 3 ML IH SCH ×2 (07:17→15:29)
[2021-07-30 07:26] LABS: BUN/Creatinine Ratio 20 (6-26); Blood Urea Nitrogen 8 mg/dL (8-23); Carbon Dioxide 25 mEq/L (23-29); Chloride 108 mEq/L (98-107); Glucose 133 mg/dL (70-105); Magnesium 1.7 mg/dL (1.6-2.6); Osmolality,Calculated 288 (280-300); Phosphorous 4.4 mg/dL (2.7-4.5); Potassium 3.3 mEq/L (3.5-5.1); Sodium 139 mEq/L (136-145); eGFR For African Americans > 60 (> 60); eGFR For Non-African Americans > 60 (> 60)
[2021-07-30] MEDS: Insulin LISPRO 300 UNITS/3 ML VIAL SUBQ SCH ×3 (07:29→16:49)
[2021-07-30] MEDS: Nicotine 21 MG PATCH.TD24 TD SCH (08:53)
[2021-07-30] MEDS: Gabapentin 300 MG CAPSULE PO SCH (08:53)
[2021-07-30] MEDS: BuPROPion SR (12 HR) 100 MG TABLET PO SCH (08:53)
[2021-07-30] MEDS: Loratadine 10 MG TABLET PO SCH (08:53)
[2021-07-30] MEDS: lisinopriL 5 MG TABLET PO SCH (08:53)
[2021-07-30] MEDS ORDERED: Thiamine (B-1) 100 MG TABLET PO SCH (09:00)
[2021-07-30] MEDS ORDERED: predniSONE 20 MG TABLET PO SCH (09:00)
[2021-07-30] MEDS ORDERED: Folic Acid 1 MG TABLET PO SCH (09:00)
[2021-07-30] MEDS: Thiamine (B-1) 100 MG in 0.9 % Sodium Chloride 50 ML IVPB SCH (10:25)
[2021-07-30] MEDS ORDERED: *HR* LORazepam 2 MG/ML VIAL IVP ONE (13:00)
[2021-07-30 17:15] VITALS: BP 130/80; PULSE 92; TEMP 98.5; O2SAT 90
[2021-08-01 09:44] LABS: California Encephalitis IgG < 1:16 (< 1:16); California Encephalitis IgM < 1:16 (< 1:16); E.Equine Encephalitis IgG < 1:16 (< 1:16); E.Equine Encephalitis IgM < 1:16 (< 1:16); St. Louis Encephalitis IgG < 1:16 (< 1:16); St. Louis Encephalitis IgM < 1:16 (< 1:16); W.Equine Encephalitis IgG < 1:16 (< 1:16); W.Equine Encephalitis IgM < 1:16 (< 1:16)
== END 2021-07-30 19:00 | disposition home health service (06) | DRG 720 ==
LOC: SUATTDRO 11:09 → ICNU 11:09 → 2NNU 07-26 20:23 → 2ANU 07-27 14:50
PROVIDERS: ADMIT Pediatrics; ATTEND Family Medicine